=== PATIENT | female | born 1995 | race Caucasian/White ===

== ENCOUNTER → 2017-05-24 | Outpatient (CLI) | payer BC | LOC: COL.LAB 14:37 | DX: R07.9 Chest pain, unspecified (principal) ==

== ENCOUNTER → 2020-02-05 | Outpatient (CLI) | payer BC | LOC: ZLAB.KSTAT 16:04 | DX: B34.9 Viral infection, unspecified (principal); Z20.828 Contact with and (suspected) exposure to other viral communicable diseases ==